=== PATIENT | female | born 1955 | race Two or more races ===

== ENCOUNTER 2020-03-25 18:42 | Emergency (ER) | payer OTHER ==
[~2020-03-25] VITALS: Ht 160 cm; Wt 49.0 kg
[~2020-03-25 18:42] MED LIST: CEFADROXIL500 MG PO; COZAAR50 MG PO
[2020-03-25] MEDS ORDERED: CARVEDILOL ER40 MG (18:55)
== END 2020-03-25 19:59 | disposition home or self-care (01) ==
LOC: ER 18:42
DX: S61.452A Open bite of left hand, initial encounter (principal); L03.114 Cellulitis of left upper limb; W54.0XXA Bitten by dog, initial encounter; Y93.89 Activity, other specified; Y92.89 Other specified places as the place of occurrence of the external cause; Y99.8 Other external cause status

== ENCOUNTER 2020-12-23 10:58 | Emergency (ER) | payer OTHER ==
[~2020-12-23] VITALS: Ht 160 cm; Wt 49.0 kg
[~2020-12-23 10:58] MED LIST changes: +CARVEDILOL ER40 MG
[2020-12-23] MEDS ORDERED: HYDROCHLOROTH12.5 MG (11:20)
== END 2020-12-23 15:28 | disposition home or self-care (01) ==
LOC: ER 10:58
DX: R10.32 Left lower quadrant pain (principal); Z20.822 Contact with and (suspected) exposure to COVID-19

== ENCOUNTER 2021-02-07 10:34 | Outpatient (CLI) | payer OTHER ==
[~2021-02-07 10:34] MED LIST changes: +HYDROCHLOROTH12.5 MG
== END 2021-02-07 10:43 | disposition home or self-care (01) ==
LOC: RAD 10:34
PROVIDERS: ATTEND Surgery
DX: K57.20 Diverticulitis of large intestine with perforation and abscess without bleeding (principal); N82.3 Fistula of vagina to large intestine

== ENCOUNTER 2021-02-13 11:00 | Inpatient (IN) | payer OTHER ==
[~2021-02-13] VITALS: Ht 160 cm; Wt 49.9 kg
[2021-02-13] MEDS ORDERED: COZAAR100 MG PO (13:11)
[2021-02-19] MEDS ORDERED: CARVEDILOL12.5 M1 (10:47)
[2021-02-22] MEDS ORDERED: INTESTINEX680 M1 PO (10:01)
[2021-02-22] MEDS ORDERED: HYOSCYAMINE0.125 M1 SL (10:01)
[2021-02-22] MEDS ORDERED: ULTRACET PO (10:01)
== END 2021-02-22 10:34 | disposition home or self-care (01) | DRG 330 ==
LOC: O/R 02-19 09:29 → SURH 02-19 10:00 → SURG 02-20 10:53
PROVIDERS: ADMIT Surgery; ATTEND Surgery
PROC: 0DBN4ZZ Excision of Sigmoid Colon, Percutaneous Endoscopic Approach (ICD-10-PCS; 2021-02-19)
PROC: 0DTP4ZZ Resection of Rectum, Percutaneous Endoscopic Approach (ICD-10-PCS; principal; 2021-02-19 10:00)
DX: K57.20 Diverticulitis of large intestine with perforation and abscess without bleeding (principal); N82.3 Fistula of vagina to large intestine; R59.0 Localized enlarged lymph nodes; I11.9 Hypertensive heart disease without heart failure; F17.200 Nicotine dependence, unspecified, uncomplicated

== ENCOUNTER 2021-04-03 08:39 | Emergency (ER) | payer OTHER ==
[~2021-04-03] VITALS: Ht 157.5 cm; Wt 47.6 kg
[~2021-04-03 08:39] MED LIST changes: +CARVEDILOL12.5 M1; +COZAAR100 MG PO; +HYOSCYAMINE0.125 M1 SL; +INTESTINEX680 M1 PO; +ULTRACET PO
== END 2021-04-03 09:38 | disposition home or self-care (01) ==
LOC: ER 08:39
DX: M25.562 Pain in left knee (principal)

== ENCOUNTER 2021-04-24 10:26 | Outpatient (CLI) | payer OTHER | END 2021-04-24 10:36 | disposition home or self-care (01) | LOC: RAD 10:26 | PROVIDERS: ATTEND Specialist | DX: M25.562 Pain in left knee (principal); M84.362A Stress fracture, left tibia, initial encounter for fracture ==

== ENCOUNTER 2021-06-18 10:22 | Outpatient (CLI) | payer OTHER | END 2021-06-18 10:34 | disposition home or self-care (01) | LOC: RAD 10:22 | PROVIDERS: ATTEND Specialist | DX: M17.12 Unilateral primary osteoarthritis, left knee (principal) ==

== ENCOUNTER 2022-12-05 14:03 | Outpatient (CLI) | payer OTHER | END 2022-12-05 14:07 | disposition home or self-care (01) | LOC: SONOGRAMA 14:03 | PROVIDERS: ATTEND Internal Medicine | DX: R59.0 Localized enlarged lymph nodes (principal) ==

== ENCOUNTER 2023-02-15 09:34 | Emergency (ER) | payer OTHER ==
[~2023-02-15] VITALS: Ht 160 cm; Wt 47.6 kg
== END 2023-02-15 16:19 ==
LOC: ER 09:34
DX: R22.1 Localized swelling, mass and lump, neck (principal); R13.19 Other dysphagia

== ENCOUNTER 2023-02-20 07:54 | Outpatient (CLI) | payer OTHER | END 2023-02-20 07:56 | disposition home or self-care (01) | LOC: NUCLEAR 07:54 | PROVIDERS: ATTEND Otolaryngology | DX: C10.9 Malignant neoplasm of oropharynx, unspecified (principal) | CPT/HCPCS: 78815; A9552 ==